=== PATIENT | male | born 2000 | race African-American/Black ===

== ENCOUNTER 2023-11-17 20:08 | Emergency (ER) | payer OTHER ==
[~2023-11-17] VITALS: Ht 170.2 cm; Wt 69.9 kg
[2023-11-17 20:23] VITALS: BP_SYST 146; PULSE 62; RESP 16; TEMP 98.2; O2SAT 95
[2023-11-17] MEDS ORDERED: PRED20TA PO (20:45)
[2023-11-17] MEDS ORDERED: FAMO-132 PO (20:45)
[2023-11-17] MEDS ORDERED: DIPH25TA62 PO (20:45)
[2023-11-17] MEDS: FAMOTIDINE PF 20 MG/2 ML VIAL IVP ONE (21:03)
[2023-11-17] MEDS: methylPREDNISolone SOD SUCC/PF 62.5 MG/ML VIAL IVP ONE (21:03)
[2023-11-17] MEDS: DIPHENHYDRAMINE INJ 50 MG/ML VIAL IVP ONE (21:04)
[2023-11-17 21:43] VITALS: BP_SYST 146; PULSE 62; RESP 16; TEMP 98.2; O2SAT 95
== END 2023-11-17 20:15 | disposition home or self-care (01) ==
LOC: SED 20:08
DX: T78.1XXA Other adverse food reactions, not elsewhere classified, initial encounter (principal); J45.909 Unspecified asthma, uncomplicated; X58.XXXA Exposure to other specified factors, initial encounter
CPT/HCPCS: 99284; 96374; 96375; J1200; J3490; J2930